=== PATIENT | female | born 1990 | race Caucasian/White ===

== ENCOUNTER 2018-03-14 20:30 | Emergency (ER) | payer OTHER ==
[~2018-03-14] VITALS: Ht 172.7 cm; Wt 100.7 kg
[2018-03-14 20:36] VITALS: Ht 172.7 cm; Wt 100.7 kg
[2018-03-14 22:56] VITALS: BP 128/73
== END 2018-03-14 22:56 | disposition home or self-care (01) ==
LOC: ED 20:30
DX: R06.02 Shortness of breath (principal); R03.0 Elevated blood-pressure reading, without diagnosis of hypertension; J45.909 Unspecified asthma, uncomplicated